=== PATIENT | female | born 1940 | race Caucasian/White ===

== ENCOUNTER → 2018-12-01 | Outpatient (CLI) | payer MEDICARE ==
--- NOTE | 2018-12-01 14:21 | XR ---
Lumbosacral spine HISTORY: Spinal stenosis, low back pain 5 views of lumbosacral spine There is anterolisthesis grade 1 L4-5. Loss of disc height L3-4, L5-S1. There is multilevel spondylos is. Bone mineralization is reduced. Sclerosis in the posterior elements is noted consistent with face t arthropathy. Apical scarring calcification present in the aortoiliac distribution. No evident spond ylolysis on oblique views. IMPRESSION: Degenerative disc disease, facet arthropathy, osteopenia.
== END | disposition home or self-care (01) ==
LOC: RADXRYALE 11:58
PROVIDERS: ATTEND Physical Medicine & Rehabilitation
DX: M51.37 Other intervertebral disc degeneration, lumbosacral region (principal); M46.97 Unspecified inflammatory spondylopathy, lumbosacral region; M85.88 Other specified disorders of bone density and structure, other site
CPT/HCPCS: 72110